=== PATIENT | male | born 1965 | race Caucasian/White ===

== ENCOUNTER → 2023-07-24 08:25 | Outpatient (REF) | payer BC, SELFPAY ==
[2023-07-24 09:47] LABS: Albumin 3.8 g/dl (3.5-5.0); Blood Urea Nitrogen 24 mg/dl (9-20); Calcium 9.1 mg/dl (8.4-10.2); Carbon Dioxide 19 mmol/L (22-30); Chloride 110 mmol/L (98-107); Glucose 82 mg/dl (70-99); Phosphorus 3.4 mg/dl (2.5-4.5); Potassium 4.2 mmol/L (3.5-5.1); Sodium 136 mmol/L (135-145); eGFR 30.32
== END ==
LOC: REG 08:25
PROVIDERS: ATTENDING PHYSICIAN Specialist
DX: I10 Essential (primary) hypertension (principal)
CPT/HCPCS: 36415; 80069

== ENCOUNTER → 2023-07-27 07:54 | Outpatient (REF) | payer BC, SELFPAY | LOC: RAD 07:54 | PROVIDERS: ATTENDING PHYSICIAN Podiatrist Foot & Ankle Surgery; FAMILY PHYSICIAN Physician Assistant | DX: I87.339 Chronic venous hypertension (idiopathic) with ulcer and inflammation of unspecified lower extremity (principal); I73.9 Peripheral vascular disease, unspecified | CPT/HCPCS: 93922; 93971 ==

== ENCOUNTER → 2023-09-09 08:32 | Outpatient (REF) | payer BC, SELFPAY | LOC: DHCBS MAIN 08:32 | PROVIDERS: ATTENDING PHYSICIAN Internal Medicine Cardiovascular Disease; FAMILY PHYSICIAN Physician Assistant | DX: I48.0 Paroxysmal atrial fibrillation (principal) | CPT/HCPCS: 93306 ==

== ENCOUNTER → 2023-10-28 09:09 | Outpatient (REF) | payer BC, SELFPAY ==
[2023-10-28 10:28] LABS: % Basophils 1.9 % (0-2); % Eosinophils 7.7 % (0-6); % Immature Granulocytes 0.4 % (0-0.5); % Lymphocytes 31.8 % (20.5-51.1); % Monocytes 8.1 % (1.7-9.3); % Neutrophils 50.1 % (42.2-75.2); Absolute Basophils 0.1 10^3/uL (0-0.2); Absolute Eosinophils 0.4 10^3/uL (0-0.7); Absolute Lymphocytes 1.7 10^3/uL (1.2-3.4); Absolute Monocytes 0.4 10^3/uL (0.1-0.6); Absolute Neutrophils 2.7 10^3/uL (1.4-6.5); Hematocrit 32.6 % (39.0-52.0); Hemoglobin 10.7 g/dL (13.0-18.0); Mean Corp Hgb Conc. 32.8 g/dL (33.0-37.0); Mean Corpuscular Hgb 28.7 pg (27.0-31.0); Mean Corpuscular Volume 87.4 fL (80.0-94.0); Mean Platelet Volume 10.1 fL (7.4-10.4); Nucleated Red Blood Cells % 0 % (-); Platelet Count 246 10^3/uL (130-400); Red Blood Cell Count 3.73 10^6/uL (4.70-6.10); Red Cell Dist. Width 16.1 % (11.5-14.5); White Blood Cell Count 5.3 10^3/uL (4.8-10.8)
[2023-10-28 11:21] LABS: ALT (SGPT) 30 U/L (0-50); AST (SGOT) 47 U/L (17-59); Alkaline Phosphatase 52 U/L (38-126); Blood Urea Nitrogen 24 mg/dl (9-20); Calcium 9.2 mg/dl (8.4-10.2); Carbon Dioxide 19 mmol/L (22-30); Chloride 108 mmol/L (98-107); Glucose 82 mg/dl (70-99); HDL Cholesterol 95 mg/dl; LDL Cholesterol, Calculated 71 mg/dl; Potassium 4.2 mmol/L (3.5-5.1); Sodium 139 mmol/L (135-145); Total Bilirubin 0.5 mg/dl (0.2-1.3); Total Cholesterol 200 mg/dl (50-199); Total Protein 6.9 g/dl (6.3-8.2); Triglyceride 174 mg/dl (10-149); Very Low Density Lipoprotein 34 mg/dl (0-30); eGFR 28.87
== END ==
LOC: REG 09:09
PROVIDERS: ATTENDING PHYSICIAN Physician Assistant
DX: I12.9 Hypertensive chronic kidney disease with stage 1 through stage 4 chronic kidney disease, or unspecified chronic kidney disease (principal); E78.2 Mixed hyperlipidemia; I25.10 Atherosclerotic heart disease of native coronary artery without angina pectoris; N18.32 Chronic kidney disease, stage 3b; F10.10 Alcohol abuse, uncomplicated; D63.8 Anemia in other chronic diseases classified elsewhere
CPT/HCPCS: 36415; 80053; 80061; 85025

== ENCOUNTER → 2023-11-11 08:32 | Outpatient (REF) | payer BC, SELFPAY ==
[2023-11-11 10:13] LABS: % Basophils 1.8 % (0-2); % Eosinophils 7.6 % (0-6); % Immature Granulocytes 0.2 % (0-0.5); % Monocytes 7.9 % (1.7-9.3); % Neutrophils 46.5 % (42.2-75.2); Absolute Basophils 0.1 10^3/uL (0-0.2); Absolute Eosinophils 0.3 10^3/uL (0-0.7); Absolute Lymphocytes 1.6 10^3/uL (1.2-3.4); Absolute Monocytes 0.3 10^3/uL (0.1-0.6); Hematocrit 33.1 % (39.0-52.0); Hemoglobin 10.6 g/dL (13.0-18.0); Mean Corpuscular Hgb 28.4 pg (27.0-31.0); Mean Corpuscular Volume 88.7 fL (80.0-94.0); Mean Platelet Volume 10.1 fL (7.4-10.4); Nucleated Red Blood Cells % 0 % (-); Platelet Count 226 10^3/uL (130-400); Red Blood Cell Count 3.73 10^6/uL (4.70-6.10); Red Cell Dist. Width 16.2 % (11.5-14.5); White Blood Cell Count 4.3 10^3/uL (4.8-10.8)
[2023-11-11 11:44] LABS: Ferritin 13.4 ng/ml (17.9-464.0)
[2023-11-11 12:19] LABS: Iron 55 ug/dl (49-181)
== END ==
LOC: REG 08:32
PROVIDERS: ATTENDING PHYSICIAN Physician Assistant
DX: D50.0 Iron deficiency anemia secondary to blood loss (chronic) (principal)
CPT/HCPCS: 36415; 82728; 83540; 85025

== ENCOUNTER → 2023-12-16 08:24 | Outpatient (REF) | payer BC, SELFPAY ==
[2023-12-16 09:19] LABS: % Eosinophils 5.4 % (0-6); % Immature Granulocytes 0.3 % (0-0.5); % Lymphocytes 20.4 % (20.5-51.1); % Monocytes 9.6 % (1.7-9.3); % Neutrophils 63.3 % (42.2-75.2); Absolute Basophils 0.1 10^3/uL (0-0.2); Absolute Eosinophils 0.4 10^3/uL (0-0.7); Absolute Lymphocytes 1.4 10^3/uL (1.2-3.4); Absolute Monocytes 0.7 10^3/uL (0.1-0.6); Absolute Neutrophils 4.3 10^3/uL (1.4-6.5); Hematocrit 36.9 % (39.0-52.0); Hemoglobin 12.9 g/dL (13.0-18.0); Mean Corpuscular Hgb 32.7 pg (27.0-31.0); Mean Corpuscular Volume 93.4 fL (80.0-94.0); Mean Platelet Volume 9.7 fL (7.4-10.4); Nucleated Red Blood Cells % 0 % (-); Platelet Count 173 10^3/uL (130-400); Red Blood Cell Count 3.95 10^6/uL (4.70-6.10); Red Cell Dist. Width 21.2 % (11.5-14.5); White Blood Cell Count 6.9 10^3/uL (4.8-10.8)
== END ==
LOC: REG 08:24
PROVIDERS: ATTENDING PHYSICIAN Physician Assistant
DX: D50.0 Iron deficiency anemia secondary to blood loss (chronic) (principal)
CPT/HCPCS: 36415; 85025

== ENCOUNTER → 2024-02-05 08:08 | Outpatient (REF) | payer BC, SELFPAY ==
[2024-02-05 08:42] LABS: % Basophils 1.5 % (0-2); % Eosinophils 7.4 % (0-6); % Immature Granulocytes 0.3 % (0-0.5); % Lymphocytes 25.4 % (20.5-51.1); % Monocytes 7.9 % (1.7-9.3); % Neutrophils 57.5 % (42.2-75.2); Absolute Basophils 0.1 10^3/uL (0-0.2); Absolute Eosinophils 0.4 10^3/uL (0-0.7); Absolute Lymphocytes 1.5 10^3/uL (1.2-3.4); Absolute Monocytes 0.5 10^3/uL (0.1-0.6); Absolute Neutrophils 3.4 10^3/uL (1.4-6.5); Hematocrit 39.4 % (39.0-52.0); Hemoglobin 13.7 g/dL (13.0-18.0); Mean Corp Hgb Conc. 34.8 g/dL (33.0-37.0); Mean Corpuscular Hgb 33.7 pg (27.0-31.0); Mean Platelet Volume 9.7 fL (7.4-10.4); Nucleated Red Blood Cells % 0 % (-); Platelet Count 192 10^3/uL (130-400); Red Blood Cell Count 4.06 10^6/uL (4.70-6.10); Red Cell Dist. Width 16.7 % (11.5-14.5); White Blood Cell Count 5.9 10^3/uL (4.8-10.8)
[2024-02-05 09:17] LABS: ALT (SGPT) 48 U/L (0-50); AST (SGOT) 63 U/L (17-59); Albumin 4.2 g/dl (3.5-5.0); Alkaline Phosphatase 58 U/L (38-126); Blood Urea Nitrogen 21 mg/dl (9-20); Calcium 9.4 mg/dl (8.4-10.2); Carbon Dioxide 20 mmol/L (22-30); Chloride 108 mmol/L (98-107); Glucose 86 mg/dl (70-99); HDL Cholesterol 105 mg/dl; Iron 219 ug/dl (49-181); LDL Cholesterol, Calculated 54 mg/dl; Potassium 4.3 mmol/L (3.5-5.1); Sodium 142 mmol/L (135-145); Total Bilirubin 0.6 mg/dl (0.2-1.3); Total Cholesterol 184 mg/dl (50-199); Total Protein 6.6 g/dl (6.3-8.2); Triglyceride 126 mg/dl (10-149); Very Low Density Lipoprotein 25 mg/dl (0-30); eGFR 30.13
== END ==
LOC: REG 08:08
PROVIDERS: ATTENDING PHYSICIAN Physician Assistant
DX: F17.200 Nicotine dependence, unspecified, uncomplicated (principal); D50.0 Iron deficiency anemia secondary to blood loss (chronic); N18.32 Chronic kidney disease, stage 3b
CPT/HCPCS: 36415; 80053; 80061; 83540; 85025

== ENCOUNTER → 2024-05-06 09:17 | Outpatient (REF) | payer BC, SELFPAY ==
[2024-05-06 11:15] LABS: % Basophils 1.2 % (0-2); % Eosinophils 5.8 % (0-6); % Immature Granulocytes 0.5 % (0-0.5); % Lymphocytes 21.4 % (20.5-51.1); % Monocytes 9.7 % (1.7-9.3); % Neutrophils 61.4 % (42.2-75.2); Absolute Basophils 0.1 10^3/uL (0-0.2); Absolute Eosinophils 0.4 10^3/uL (0-0.7); Absolute Lymphocytes 1.4 10^3/uL (1.2-3.4); Absolute Monocytes 0.6 10^3/uL (0.1-0.6); Hematocrit 39.5 % (39.0-52.0); Hemoglobin 13.4 g/dL (13.0-18.0); Mean Corp Hgb Conc. 33.9 g/dL (33.0-37.0); Mean Corpuscular Hgb 34.7 pg (27.0-31.0); Mean Corpuscular Volume 102.3 fL (80.0-94.0); Mean Platelet Volume 10.3 fL (7.4-10.4); Nucleated Red Blood Cells % 0 % (-); Platelet Count 211 10^3/uL (130-400); Red Blood Cell Count 3.86 10^6/uL (4.70-6.10); Red Cell Dist. Width 13.4 % (11.5-14.5); White Blood Cell Count 6.5 10^3/uL (4.8-10.8)
[2024-05-06 11:38] LABS: ALT (SGPT) 26 U/L (0-50); AST (SGOT) 34 U/L (17-59); Alkaline Phosphatase 53 U/L (38-126); Blood Urea Nitrogen 25 mg/dl (9-20); Calcium 9.4 mg/dl (8.4-10.2); Carbon Dioxide 24 mmol/L (22-30); Chloride 104 mmol/L (98-107); Glucose 99 mg/dl (70-99); Iron 278 ug/dl (49-181); Potassium 4.1 mmol/L (3.5-5.1); Sodium 138 mmol/L (135-145); Total Protein 6.6 g/dl (6.3-8.2); eGFR 28.69
[2024-05-06 18:20] LABS: Ferritin 61.4 ng/ml (17.9-464.0)
== END ==
LOC: REG 09:17
PROVIDERS: ATTENDING PHYSICIAN Physician Assistant
DX: D50.0 Iron deficiency anemia secondary to blood loss (chronic) (principal); N18.32 Chronic kidney disease, stage 3b
CPT/HCPCS: 36415; 80053; 82728; 83540; 85025

== ENCOUNTER → 2024-10-04 08:03 | Outpatient (REF) | payer BC, SELFPAY ==
[2024-10-04 09:25] LABS: % Basophils 1.2 % (0-2); % Eosinophils 5.9 % (0-6); % Immature Granulocytes 0.3 % (0-0.5); % Neutrophils 65.6 % (42.2-75.2); Absolute Basophils 0.1 10^3/uL (0-0.2); Absolute Eosinophils 0.4 10^3/uL (0-0.7); Absolute Lymphocytes 1.2 10^3/uL (1.2-3.4); Absolute Monocytes 0.6 10^3/uL (0.1-0.6); Absolute Neutrophils 4.4 10^3/uL (1.4-6.5); Hematocrit 39.4 % (39.0-52.0); Hemoglobin 13.8 g/dL (13.0-18.0); Mean Corpuscular Hgb 34.7 pg (27.0-31.0); Nucleated Red Blood Cells % 0 % (-); Platelet Count 184 10^3/uL (130-400); Red Blood Cell Count 3.98 10^6/uL (4.70-6.10); Red Cell Dist. Width 12.9 % (11.5-14.5); White Blood Cell Count 6.7 10^3/uL (4.8-10.8)
[2024-10-04 09:49] LABS: ALT (SGPT) 20 U/L (0-50); AST (SGOT) 23 U/L (17-59); Albumin 3.7 g/dl (3.5-5.0); Alkaline Phosphatase 54 U/L (38-126); Blood Urea Nitrogen 20 mg/dl (9-20); Calcium 9.4 mg/dl (8.4-10.2); Carbon Dioxide 24 mmol/L (22-30); Chloride 106 mmol/L (98-107); Glucose 100 mg/dl (70-99); HDL Cholesterol 87 mg/dl; Iron 104 ug/dl (49-181); LDL Cholesterol, Calculated 45 mg/dl; Potassium 4.1 mmol/L (3.5-5.1); Sodium 139 mmol/L (135-145); Total Bilirubin 0.9 mg/dl (0.2-1.3); Total Cholesterol 180 mg/dl (50-199); Total Protein 6.4 g/dl (6.3-8.2); Triglyceride 241 mg/dl (10-149); Very Low Density Lipoprotein 48 mg/dl (0-30); eGFR 27.38
[2024-10-04 09:57] LABS: Percent Saturation 39 % (20-50); Total Iron Binding Capacity 263 ug/dl (261-462)
[2024-10-04 10:21] LABS: PSA, Total - Screen 0.82 ng/ml (0.0-4.0)
[2024-10-04 12:11] LABS: Protein/creatinine Ratio 7.7; Urine Protein 1015 mg/dl
== END ==
LOC: REG 08:03
PROVIDERS: ATTENDING PHYSICIAN Specialist; FAMILY PHYSICIAN Physician Assistant; REFERRING PHYSICIAN Internal Medicine Cardiovascular Disease
DX: I12.9 Hypertensive chronic kidney disease with stage 1 through stage 4 chronic kidney disease, or unspecified chronic kidney disease (principal); E78.2 Mixed hyperlipidemia; I25.10 Atherosclerotic heart disease of native coronary artery without angina pectoris; N18.32 Chronic kidney disease, stage 3b; I48.0 Paroxysmal atrial fibrillation; D50.0 Iron deficiency anemia secondary to blood loss (chronic); Z12.5 Encounter for screening for malignant neoplasm of prostate
CPT/HCPCS: 36415; 80053; 80061; 82570; 82728; 83540; 83550; 84156; 85025; G0103

== ENCOUNTER → 2025-04-11 07:39 | Outpatient (REF) | payer BC, SELFPAY ==
[2025-04-11 08:41] LABS: Hematocrit 37.2 % (39.0-52.0); Hemoglobin 13.0 g/dL (13.0-18.0); Mean Corp Hgb Conc. 34.9 g/dL (33.0-37.0); Mean Corpuscular Volume 100.3 fL (80.0-94.0); Nucleated Red Blood Cells % 0 % (-); Platelet Count 201 10^3/uL (130-400); Red Cell Dist. Width 12.9 % (11.5-14.5)
[2025-04-11 09:17] LABS: ALT (SGPT) 24 U/L (0-50); AST (SGOT) 27 U/L (17-59); Albumin 4.0 g/dl (3.5-5.0); Alkaline Phosphatase 52 U/L (38-126); Blood Urea Nitrogen 21 mg/dl (9-20); Calcium 9.4 mg/dl (8.4-10.2); Carbon Dioxide 22 mmol/L (22-30); Chloride 108 mmol/L (98-107); Glucose 99 mg/dl (70-99); HDL Cholesterol 78 mg/dl; LDL Cholesterol, Calculated 62 mg/dl; Potassium 3.8 mmol/L (3.5-5.1); Sodium 135 mmol/L (135-145); Total Protein 6.7 g/dl (6.3-8.2); Very Low Density Lipoprotein 35 mg/dl (0-30); eGFR 28.52
[2025-04-11 09:29] LABS: Vitamin D, 25-OH*** 38.0 ng/mL (30-80)
[2025-04-11 10:06] LABS: Glycohemoglobin (HgbA1c) 5.1 % (4.0-5.9)
== END ==
LOC: REG 07:39
PROVIDERS: ATTENDING PHYSICIAN Physician Assistant
DX: I12.9 Hypertensive chronic kidney disease with stage 1 through stage 4 chronic kidney disease, or unspecified chronic kidney disease (principal); E78.2 Mixed hyperlipidemia; I25.10 Atherosclerotic heart disease of native coronary artery without angina pectoris; N18.32 Chronic kidney disease, stage 3b; I48.0 Paroxysmal atrial fibrillation; E55.9 Vitamin D deficiency, unspecified; D64.9 Anemia, unspecified; R73.9 Hyperglycemia, unspecified
CPT/HCPCS: 36415; 80053; 80061; 82306; 83036; 85025